=== PATIENT | female | born 1960 | race Caucasian/White ===

== ENCOUNTER 2016-12-26 17:52 | Emergency (ER) | payer BC ==
[2016-12-26 18:42] VITALS: BP 141/72
--- NOTE | 2016-12-26 20:38 | UC ---
Horace Calhoun Billy, scribed for JacquelynIvonneeffie Cain DO on 12/26/16 at 1940 . General HPI - HPI Summary HPI Summary: Patient is a 56 year-old female coming to [facility] presenting with flu-like symptoms for 4 days. She describes diffuse myalgia and intermittent nausea, chills, and diaphoresis. She also reports sore throat, hoarse voice, postnasal drip, and headache. She states that the headache is severity 2/10. Sore throat severity 3/10. She rates myalgia pain severity 5/10. Denies any fever, ear ache , cough, or sinus pressure. Denies chest pain, SOB, dizziness, or urinary symptoms. She reports recent viral illness 5 weeks ago. - History of Current Complaint Chief Complaint: UCGeneralIllness Stated Complaint: NAUSEA, CHILLS AND ACHES Time Seen by Provider: 12/26/16 19:27 Hx Obtained From: Patient Onset/Duration: Gradual Onset, Lasting Minutes, Lasting Days, Still Present Timing: Intermittent Episodes Lasting: Onset Severity: Moderate Current Severity: Moderate Pain Location at: headache, myalgia, sore throat Aggravating: none Alleviating: none Associated Signs & Symptoms: Positive: Headache, Nausea, Other - fatigue, chills , diaphoresis, sore throat, postnasal drip, hoarse voice. Negative: Abdominal Pain, Cough, Chest Pain, Diarrhea, Fever, SOB, Vomiting - Allergy/Home Medications Allergies/Adverse Reactions: Allergies Allergy/AdvReac Type Severity Reaction Status Date / Time No Known Allergies Allergy Verified 12/26/16 18:42 Home Medications: Home Medications Rodeola Rosea* 12/26/16 [History] clonazePAM TAB(*) [Klonopin TAB(*)] 12/26/16 [History] lamoTRIgine TAB(*) [Lamictal TAB(*)] 12/26/16 [History] PMH/Surg Hx/FS Hx/Imm Hx Cardiovascular History Of: Denies: Hypertension Respiratory History Of: Denies: Asthma Psychological History Of: Reports: Bipolar Disorder - Surgical History Surgical History: Yes Surgery Procedure, Year, and Place: - Family History Known Family History: Negative: Cardiac Disease, Hypertension, Diabetes - Social History Occupation: Employed Full-time Lives: With Family Alcohol Use: None Substance Use Type: None Smoking Status (MU): Never Smoked Tobacco Review of Systems Constitutional: Chills, Fatigue, Other - diaphoresis Skin: Negative Eyes: Negative ENT: Sore Throat, Other - postnasal drip, hoarse voice, Respiratory: Negative Cardiovascular: Negative Gastrointestinal: Other - nausea Genitourinary: Negative Motor: Negative Neurovascular: Negative Musculoskeletal: Myalgia Neurological: Headache Psychological: Negative All Other Systems Reviewed And Are Negative: Yes Physical Exam Triage Information Reviewed: Yes Appearance: Well-Appearing, No Pain Distress, Well-Nourished Vital Signs: Initial Vital Signs Temp 97.6 F 12/26/16 18:38 Pulse 79 12/26/16 18:38 Resp 16 12/26/16 18:38 BP 141/72 12/26/16 18:38 Pulse Ox 99 12/26/16 18:38 Vital Signs Reviewed: Yes Eyes: Positive: Conjunctiva Clear. Negative: Discharge ENT: Positive: Hearing grossly normal, Pharynx normal, TMs normal, Muffled/ hoarse voice. Negative: Tonsillar swelling, Tonsillar exudate, Trismus Neck: Positive: Supple, Nontender Respiratory: Positive: Lungs clear, Normal breath sounds, No respiratory distress, No accessory muscle use Cardiovascular: Positive: RRR, No Murmur Musculoskeletal Exam: Normal Musculoskeletal: Positive: Strength Intact Neurological: Positive: Alert, Muscle Tone Normal Psychological: Positive: Age Appropriate Behavior Skin Exam: Normal - Normal dry skin. Course/Dx - Differential Dx - Multi-Symptom Provider Diagnoses: viral syndrom Discharge - Discharge Plan Condition: Stable Disposition: HOME Patient Education Materials: Viral Syndrome (ED) Referrals: Lindsey Park MD [Primary Care Provider] - If Needed (follow up in 5 days if not improving) The documentation as recorded by the Horace bishop Billy accurately reflects the service I personally performed and the decisions made by , Ivonne Valladares DO.
== END 2016-12-26 20:29 | disposition home or self-care (01) ==
LOC: UCEAST 17:52
DX: B34.9 Viral infection, unspecified (principal)
CPT/HCPCS: 87502; 99211; G0463

== ENCOUNTER 2018-03-27 18:21 | Emergency (ER) | payer BC ==
[2018-03-27 18:36] VITALS: BP 134/75
--- NOTE | 2018-03-27 19:16 | UC ---
UC General HPI - History of Current Complaint Chief Complaint: UCGI Stated Complaint: DIARRHEA Time Seen by Provider: 03/27/18 18:43 Hx Obtained From: Patient Onset/Duration: Gradual Onset - started 10-11 days ago with nausea and upset stomach. now has had intermittanr soft stool and gasy feeling in lower abd for few days. is eating BRAT diet for 24-48h and no Nausea now but still has soft stool "not watery diarrhea". has ahd same symps but is getting better, also was told that residents at her mother's assisted had a GI bug Timing: Intermittent Episodes Lasting: Onset Severity: Moderate Current Severity: None Pain Intensity: 0 Associated Signs & Symptoms: Positive: Nausea, Other - soft stool, not black or bloody. Negative: Abdominal Pain, Dizziness, Fever, Vomiting - Allergy/Home Medications Allergies/Adverse Reactions: Allergies Allergy/AdvReac Type Severity Reaction Status Date / Time No Known Allergies Allergy Verified 03/27/18 18:36 Home Medications: Home Medications Venlafaxine EXT RELEASE CAP* [Effexor Xr CAP*] 75 mg PO DAILY 03/27/18 [History Confirmed 03/27/18] PMH/Surg Hx/FS Hx/Imm Hx Previously Healthy: Yes Psychological History: Anxiety, Depression - Surgical History Surgical History: Yes Surgery Procedure, Year, and Place: - Family History Known Family History: Negative: Cardiac Disease, Hypertension, Diabetes - Social History Occupation: Employed Part-time Lives: With Family Alcohol Use: None Substance Use Type: None Smoking Status (MU): Never Smoked Tobacco Review of Systems Constitutional: Negative Skin: Negative Respiratory: Negative Cardiovascular: Negative Genitourinary: Negative Neurological: Negative Psychological: Negative All Other Systems Reviewed And Are Negative: Yes Physical Exam Triage Information Reviewed: Yes Appearance: Well-Appearing, No Pain Distress, Well-Nourished Vital Signs: Initial Vital Signs Temp 98.1 F 03/27/18 18:31 Pulse 91 03/27/18 18:31 Resp 20 03/27/18 18:31 BP 134/75 03/27/18 18:31 Pulse Ox 98 03/27/18 18:31 Vital Signs Reviewed: Yes Respiratory Exam: Normal Respiratory: Positive: Lungs clear Cardiovascular Exam: Normal Cardiovascular: Positive: RRR Abdominal Exam: Normal Abdomen Description: Positive: Nontender, No Organomegaly, Soft. Negative: CVA Tenderness (R), CVA Tenderness (L), Distended Bowel Sounds: Positive: Present Musculoskeletal Exam: Normal Neurological Exam: Normal Psychological Exam: Normal Skin Exam: Normal Course/Dx - Differential Dx - Multi-Symptom Differential Diagnoses: Other - gastroenteritis, colitis Provider Diagnoses: viral gastroenteritis Discharge - Sign-Out/Discharge Documenting (check all that apply): Discharge/Admit/Transfer - Discharge Plan Condition: Good Disposition: HOME Patient Education Materials: Gastroenteritis (ED) Referrals: Lindsey Park MD [Primary Care Provider] - 2 Days Additional Instructions: Stay on BRAT diet-especially white rice drink plenty of fluids start Pepto bismol (over the counter) as directed reprot to ER if your symptoms worsen or change - Billing Disposition and Condition Condition: GOOD Disposition: HOME
== END 2018-03-27 19:30 | disposition home or self-care (01) ==
LOC: UCEAST 18:21
DX: A08.4 Viral intestinal infection, unspecified (principal); F41.9 Anxiety disorder, unspecified; F32.9 Major depressive disorder, single episode, unspecified
CPT/HCPCS: 99211; G0463

== ENCOUNTER 2019-05-18 10:02 | Emergency (ER) | payer BC ==
[2019-05-18 10:46] VITALS: BP 139/79
--- NOTE | 2019-05-18 12:07 | UC ---
Lower Extremity/Ankle HPI - HPI Summary HPI Summary: 58 y/o female presents to the urgent care c/o left foot pain after stepping down wrong on thursday - History of Current Complaint Chief Complaint: UCLowerExtremity Stated Complaint: FOOT INJURY Time Seen by Provider: 05/18/19 12:02 Hx Obtained From: Patient Pain Intensity: 9 - Allergies/Home Medications Allergies/Adverse Reactions: Allergies Allergy/AdvReac Type Severity Reaction Status Date / Time No Known Allergies Allergy Verified 05/18/19 10:48 PMH/Surg Hx/FS Hx/Imm Hx - Surgical History Surgical History: Yes Surgery Procedure, Year, and Place: - Family History Known Family History: Negative: Cardiac Disease, Hypertension, Diabetes - Social History Alcohol Use: None Substance Use Type: None Smoking Status (MU): Never Smoked Tobacco Physical Exam - Summary Physical Exam Summary: Vital Signs Reviewed: Yes General : well developed, well nourished female w/o any apparent distress Eyes: Positive: Conjunctiva Clear - PERRLA, EOMI ENT: Positive: Normal ENT inspection, Hearing grossly normal, Pharynx normal, TMs normal Neck: Positive: Supple, Nontender, No Lymphadenopathy Respiratory: Positive: Chest non-tender, Lungs clear, Normal breath sounds, No respiratory distress Cardiovascular: Positive: RRR, No Murmur, Pulses Normal Abdomen Description: Positive: Nontender, No Organomegaly, Soft. Negative: CVA Tenderness (R), CVA Tenderness (L) Bowel Sounds: Positive: Present Musculoskeletal: Positive: Strength Intact, ROM Intact, No Edema, left Foot/ Toes: Pt is able to bear weight but ambulate with mild limping. left foot :No surface trauma, ecchymosis, erythema, lesions, ulcers or break in skin integrity. The L foot is without obvious asymmetry or deformity when compared to the R foot. No bony step-off, No tenderness to palpation over toes, point tenderness over the dorsal side of mid foot and base of the 4th and 5th metatarsal and sole at the same level, no tenderness of hindfoot, Decrease plantar/dorsiflexion, inversion/eversion due to pain. Distal motor and neurovascular status are intact. Neurological Exam: Normal Psychological Exam: Normal Skin Exam: Normal Triage Information Reviewed: Yes Vital Signs: Initial Vital Signs Temp 99.8 F 05/18/19 10:43 Pulse 85 05/18/19 10:43 Resp 16 07/17/19 10:43 BP 139/79 05/18/19 10:43 Pulse Ox 99 05/18/19 10:43 Lower Extremity Course/Dx - Differential Dx/Diagnosis Differential Diagnosis/HQI/PQRI: Arthritis, Contusion, Dislocation, Fracture ( Closed), Sprain, Strain, Tendonitis Provider Diagnosis: Sprain of left foot, Osteoarthritis Discharge - Sign-Out/Discharge Documenting (check all that apply): Patient Departure - D/C home All imaging exams completed and their final reports reviewed: Yes - Discharge Plan Condition: Stable Disposition: HOME Patient Education Materials: Foot Sprain (ED) Referrals: Lindsey Park MD [Primary Care Provider] - 1 Week Abram Camilo MD [Medical Doctor] - 1 Week Additional Instructions: 1-Please continue taking Tylenol Po q6hrs since you declined other pain medications to alleviate pain and swelling. 2-Please apply ice, keep your foot immobilized with the Adebayo bandage and post- op shoe. Use the crutches you have at home to avoid weight bearing .Avoid strenuous exercise or standing for long periods of time 3- Please f/u with your appt next week w/ Orthopedic Dr Camilo for further evaluation and treatment on your left foot sprain. . - Billing Disposition and Condition Condition: STABLE Disposition: Home
== END 2019-05-18 12:30 | disposition home or self-care (01) ==
LOC: UCEAST 10:02
DX: S93.602A Unspecified sprain of left foot, initial encounter (principal); X50.0XXA Overexertion from strenuous movement or load, initial encounter; Y92.9 Unspecified place or not applicable
CPT/HCPCS: 99212; G0463